=== PATIENT | female | born 1960 | race Caucasian/White ===

== ENCOUNTER 2017-01-12 08:47 | Day surgery (SDC) | payer SELFPAY ==
[2017-01-12] MEDS ORDERED: Lactated Ringer's 500 ML IV ONE (11:08)
[2017-01-12 11:26] VITALS: O2SAT 100
[2017-01-12 13:19] VITALS: BP 108/67; TEMP 97.5
[2017-01-12 13:43] VITALS: PULSE 65; RESP 12
== END 2017-01-12 13:44 | disposition home or self-care (01) ==
LOC: H.ENDO 08:47
PROVIDERS: ATTEND Internal Medicine Gastroenterology
DX: K57.92 Diverticulitis of intestine, part unspecified, without perforation or abscess without bleeding (principal); E03.9 Hypothyroidism, unspecified; Z09 Encounter for follow-up examination after completed treatment for conditions other than malignant neoplasm; K64.1 Second degree hemorrhoids
CPT/HCPCS: 45378; J2001; J7120

== ENCOUNTER 2017-11-03 14:38 | Emergency (ER) | payer SELFPAY ==
[2017-11-03 14:39] VITALS: BMI 31.5
--- NOTE | 2017-11-03 15:49 | ED PDOC ---
HPI: Female Pain Time Seen by Provider: 11/03/17 15:29 Chief Complaint (Nursing): Female Genitourinary Chief Complaint (Provider): Female Genitourinary History Per: Patient History/Exam Limitations: no limitations Onset/Duration Of Symptoms: Days (x 1) Current Symptoms Are (Timing): Still Present Quality Of Discomfort: "Pain" Associated Symptoms: denies: Vomiting, Diarrhea, Back Pain, Urinary Symptoms Additional Complaint(s): 57 year old female with a history of diverticulitis and a colostomy last year presents to the ED with diffuse abdominal pain and vaginal bleeding that began last night. She reports that she is urinating and defecating normally without pain and her vaginal blood does not contain clots. Patient denies back pain, vomiting, diarrhea, fever, bloody stool or urinary problems. PMD: [facility] Past Medical History Reviewed: Historical Data, Nursing Documentation, Vital Signs Vital Signs: Last Vital Signs Temp 98.2 F 11/03/17 14:41 Pulse 86 11/03/17 14:41 Resp 16 11/03/17 14:41 BP 138/96 H 11/03/17 14:41 Pulse Ox 98 11/03/17 14:41 - Medical History PMH: Diverticulitis, Hypothyroidism Denies: Chronic Kidney Disease - Surgical History Other surgeries: colostomy (last year) - Family History Family History: States: Unknown Family Hx - Social History Current smoker - smoking cessation education provided: No Ex-Smoker (has not smoked in the last 12 months): No Alcohol: Social Drugs: Denies - Immunization History Hx Tetanus Toxoid Vaccination: No Hx Influenza Vaccination: No Hx Pneumococcal Vaccination: No - Home Medications Home Medications: Ambulatory Orders Medication Instructions Recorded Levothyroxine [Synthroid] 0.1 mg PO DAILY 07/21/16 Amoxicillin/Potassium Clav 1 tab PO BIDPC #7 tab 02/19/17 [Augmentin 500 mg-125 mg] - Allergies Allergies/Adverse Reactions: Allergies Allergy/AdvReac Type Severity Reaction Status Date / Time No Known Allergies Allergy Verified 07/21/16 22:37 Review of Systems ROS Statement: Except As Marked, All Systems Reviewed And Found Negative Constitutional: Negative for: Fever Gastrointestinal: Positive for: Abdominal Pain (diffuse). Negative for: Vomiting, Diarrhea, Hematemesis Genitourinary Female: Positive for: Vaginal Bleeding (without clots) Musculoskeletal: Negative for: Back Pain Physical Exam - Reviewed Nursing Documentation Reviewed: Yes Vital Signs Reviewed: Yes - Physical Exam Appears: Positive for: Non-toxic, No Acute Distress Head Exam: Positive for: ATRAUMATIC, NORMAL INSPECTION, NORMOCEPHALIC Skin: Positive for: Normal Color, Warm, Dry Eye Exam: Positive for: EOMI, Normal appearance, PERRL Neck: Positive for: Normal, Painless ROM, Supple Cardiovascular/Chest: Positive for: Regular Rate, Rhythm. Negative for: Murmur Respiratory: Positive for: Normal Breath Sounds. Negative for: Respiratory Distress Gastrointestinal/Abdominal: Positive for: Tenderness (LLQ ) Back: Positive for: Normal Inspection Extremity: Positive for: Normal ROM. Negative for: Deformity Neurologic/Psych: Positive for: Alert, Oriented. Negative for: Motor/Sensory Deficits - Laboratory Results Result Diagrams: 11/03/17 15:50 11/03/17 15:50 - ECG O2 Sat by Pulse Oximetry: 98 (RA) Pulse Ox Interpretation: Normal Medical Decision Making Medical Decision Making: Time; 15:41 Impression: abdominal pain and vaginal bleeding Differential diagnoses include but are not limited to: uterine dysplasia, uterine cyst, diverticulitis Initial Plan: --BMP --Urine preg --urine dip --CBC with differentials --pelvis/ transvag US US FINDINGS: UTERUS: Measures 7.1 x 3.8 x 4.8 cm. Retroverted. No uterine mass. ENDOMETRIUM: Measures 4 mm in diameter. Unremarkable. CERVIX: No cervical abnormality identified. RIGHT OVARY: Measures 1.7 x 0.8 x 2.0 cm. No solid mass. Normal flow. LEFT OVARY: Measures 1.5 x 1.1 x 1.4 cm. No solid mass. Normal flow. FREE FLUID: No significant free fluid noted. OTHER FINDINGS: None. IMPRESSION: Unremarkable pelvic ultrasound. Time: 18:07 --Upon reevaluation, patient reports improvement of symptoms and is requesting to be discharged. Results were discussed with patient and is aware she must follow up with document control manager due to vaginal bleeding. She is stable and will be discharged home. Return to the Ed if symptoms persist or worsen. Scribe Attestation: Documented by Valeria Schumacher, acting as a scribe for Abner Márquez MD Provider Scribe Attestation: All medical record entries made by the Scribe were at my direction and personally dictated by me. I have reviewed the chart and agree that the record accurately reflects my personal performance of the history, physical exam, medical decision making, and the department course for this patient. I have also personally directed, reviewed, and agree with the discharge instructions and disposition. Disposition - Clinical Impression Clinical Impression: Vaginal bleeding - Patient ED Disposition Is Patient to be Admitted: No Doctor Will See Patient In The: Office Counseled Patient/Family Regarding: Studies Performed, Diagnosis, Need For Followup - Disposition Referrals: [facility] [Outside] Disposition: Routine/Home Disposition Time: 18:30 Condition: GOOD Additional Instructions: Follow up with your document control manager in 4- 5 days.
[2017-11-03 15:59] LABS: BASO # 0.1 K/uL (0.0-0.2); BASO % 0.6 % (0.0-2.0); EOS # 0.4 K/uL (0.0-0.7); EOS % 4.1 % (0.0-4.0); HEMOGLOBIN 12.6 g/dL (12.0-16.0); LYMPH # 2.7 K/uL (1.0-4.3); LYMPH % 26.6 % (20.0-40.0); MEAN CELL VOLUME 87.4 fl (81.0-99.0); MEAN CORPUSCULAR HEMOGLOBIN 30.1 pg (27.0-31.0); MEAN CORPUSCULAR HGB CONC 34.4 g/dL (33.0-37.0); MEAN PLATELET VOLUME 9.8 fl (7.2-11.7); MONO # 0.9 K/uL (0.0-0.8); MONO % 9.1 % (0.0-10.0); NEUT # 6.1 K/uL (1.8-7.0); NEUT % 59.6 % (50.0-75.0); NRBC % 0.1 % (0.0-0.0); RBC 4.2 Mil/uL (3.80-5.20); RED CELL DISTRIBUTION WIDTH 13.5 % (11.5-14.5); WHITE BLOOD COUNT 10.3 K/uL (4.8-10.8)
[2017-11-03 16:11] LABS: BLOOD UREA NITROGEN 17 mg/dl (7-17); CALCIUM 9.1 mg/dL (8.4-10.2); GFR AFRICAN-AMERICAN > 60; GFR NON-AFRICAN AMERICAN > 60
--- NOTE | 2017-11-03 17:52 | US ---
HISTORY: vaginal bleeding left pelvic pain COMPARISON: None available. TECHNIQUE: Transabdominal and transvaginal FINDINGS: UTERUS: Measures 7.1 x 3.8 x 4.8 cm. Retroverted. No uterine mass. ENDOMETRIUM: Measures 4 mm in diameter. Unremarkable. CERVIX: No cervical abnormality identified. RIGHT OVARY: Measures 1.7 x 0.8 x 2.0 cm. No solid mass. Normal flow. LEFT OVARY: Measures 1.5 x 1.1 x 1.4 cm. No solid mass. Normal flow. FREE FLUID: No significant free fluid noted. OTHER FINDINGS: None. IMPRESSION: Unremarkable pelvic ultrasound.
[2017-11-03 18:55] VITALS: BP 131/76; PULSE 71; RESP 78; TEMP 97.8
[2017-11-03 19:02] VITALS: O2SAT 98
== END 2017-11-03 18:52 | disposition home or self-care (01) ==
LOC: H.ER 14:38
DX: N93.9 Abnormal uterine and vaginal bleeding, unspecified (principal); E03.9 Hypothyroidism, unspecified; Z87.891 Personal history of nicotine dependence

== ENCOUNTER 2018-10-06 06:47 | Emergency (ER) | payer SELFPAY ==
[2018-10-06 06:48] VITALS: BMI 31.5
[2018-10-06 07:05] VITALS: RESP 18
--- NOTE | 2018-10-06 07:21 | ED PDOC ---
HPI: Abdomen Time Seen by Provider: 10/06/18 07:11 Chief Complaint (Nursing): Abdominal Pain Chief Complaint (Provider): Abdominal Pain History Per: Patient, Family (daughter) History/Exam Limitations: no limitations Onset/Duration Of Symptoms: Days (x3), Worse Since (last night) Current Symptoms Are (Timing): Still Present Additional Complaint(s): 58 year old female with medical history of diverticulitis, presents to the emergency department with daughter at bedside for an evaluation of back pain and dysuira associated with burning sensation, frequency, and urgency for the past 3 days. She additionally reports some nausea that had resolved upon arrival. Patient states symptoms became worse last night but has not taken any medication for relief, thus far. She denies bloody urine, chest pain, vomiting, shortness of breath, fever, chills, or cough. PCP: [facility] Past Medical History Reviewed: Historical Data, Nursing Documentation, Vital Signs Vital Signs: Last Vital Signs Temp 97.8 F 10/06/18 07:03 Pulse 76 10/06/18 07:03 Resp 18 10/06/18 07:03 BP 131/82 10/06/18 07:03 Pulse Ox 97 10/06/18 07:03 Primary Care Provider: Angelina Moody ([facility]) - Medical History PMH: Diverticulitis, Hypothyroidism Denies: Chronic Kidney Disease - Surgical History Other surgeries: colostomy - Family History Family History: States: Unknown Family Hx - Immunization History Hx Tetanus Toxoid Vaccination: No Hx Influenza Vaccination: No Hx Pneumococcal Vaccination: No - Home Medications Home Medications: Ambulatory Orders Medication Instructions Recorded Levothyroxine [Synthroid] 0.1 mg PO DAILY 07/21/16 Amoxicillin/Potassium Clav 1 tab PO BIDPC #7 tab 02/19/17 [Augmentin 500 mg-125 mg] Ibuprofen [Motrin] 600 mg PO TID 7 Days tab 10/06/18 Nitrofurantoin Macrocrystals 100 mg PO BID #10 cap 10/06/18 [Macrobid] - Allergies Allergies/Adverse Reactions: Allergies Allergy/AdvReac Type Severity Reaction Status Date / Time No Known Allergies Allergy Verified 10/06/18 07:06 Review of Systems ROS Statement: Except As Marked, All Systems Reviewed And Found Negative Constitutional: Negative for: Fever, Chills Cardiovascular: Negative for: Chest Pain Respiratory: Negative for: Cough, Shortness of Breath Gastrointestinal: Positive for: Nausea (resolved), Abdominal Pain (lower). Negative for: Vomiting Genitourinary Female: Positive for: Dysuria (burning sensation), Frequency (and urgency). Negative for: Hematuria Musculoskeletal: Positive for: Back Pain (lower) Physical Exam - Reviewed Nursing Documentation Reviewed: Yes Vital Signs Reviewed: Yes - Physical Exam Appears: Positive for: No Acute Distress, Uncomfortable Head Exam: Positive for: ATRAUMATIC, NORMAL INSPECTION, NORMOCEPHALIC Skin: Positive for: Normal Color Eye Exam: Positive for: Normal appearance ENT: Positive for: Normal ENT Inspection Neck: Positive for: Normal Cardiovascular/Chest: Positive for: Regular Rate, Rhythm, Chest Non Tender. Negative for: Murmur Respiratory: Positive for: Normal Breath Sounds. Negative for: Respiratory Distress Gastrointestinal/Abdominal: Positive for: Soft, Tenderness (suprapubic; LLQ) Back: Positive for: Normal Inspection. Negative for: L CVA Tenderness, R CVA Tenderness, Other (flank tenderness) Extremity: Positive for: Normal ROM (upper/lower) Neurological/Psych: Positive for: Awake, Alert, Normal Tone, Symmetric/Intact Strength, Oriented. Negative for: Motor/Sensory Deficits - Laboratory Results Result Diagrams: 10/06/18 07:28 10/06/18 07:40 Interpretation Of Abn Labs: 10.9 wbc, urine wbc - ECG O2 Sat by Pulse Oximetry: 97 (RA) Pulse Ox Interpretation: Normal - CT Scan/US ct Other Rad Studies (CT/US): Read By Radiologist Other Rad Interpretation: cystitis - Progress ED Course And Treament: 1042: Stable. AAOx3. Pain free. Tolerated PO. Will rx for uti. Medical Decision Making Medical Decision Making: Time: 715 Initial Plan: * Labs including UA * CT ABD/pelvis * IV fluids * Toradol IVP * Zofran IV * Blood culture * Urine culture Time: 939 --CT ABD/pelvis FINDINGS: LOWER THORAX: Unremarkable. LIVER: Mild hepatomegaly. No gross lesion or ductal dilatation. GALLBLADDER AND BILE DUCTS: Unremarkable. PANCREAS: Unremarkable. No gross lesion or ductal dilatation. SPLEEN: Unremarkable. ADRENALS: Unremarkable. No mass. KIDNEYS AND URETERS: Unremarkable. No hydronephrosis. No solid mass. VASCULATURE: Unremarkable. No aortic aneurysm. No aortic atherosclerotic calcification or mural plaque present. BOWEL: Mild constipation. No obstruction. No gross mural thickening. The patient is status post the anastomosis of the large bowel at the rectum noted. The small bowel loops are not dilated. APPENDIX: There is no evidence of appendicitis. PERITONEUM: Unremarkable. No free fluid. No free air. LYMPH NODES: Unremarkable. No enlarged lymph nodes. BLADDER: Mild to moderate circumferential urinary bladder wall thickening is noted. REPRODUCTIVE: Unremarkable. BONES: No acute fracture. OTHER FINDINGS: There is a fat containing left lateral abdominal wall hernia measures 8.5 centimeter in the transverse diameter and 3.8 centimeter in the AP diameter. There is also umbilical hernia contains short segment of small bowel loops without evidence of bowel obstruction or incarceration. There are adjacent fat containing ventral hernia at the midline superior to the umbilicus also noted. IMPRESSION: Moderate circumferential urinary bladder wall thickening associated with mild dilatation of the collecting system of both kidneys. Please correlate clinically for cystitis. Postsurgical changes suggestive of prior large bowel anastomosis at the rectum. Multiple fat containing anterior and left lateral abdominal wall hernias noted. Umbilical hernia contains short segment of small bowel loop without evidence of bowel incarceration or obstruction. Scribe Attestation: Documented by Odalys Burrows, acting as a scribe for James Butler MD. Provider Scribe Attestation: All medical record entries made by the Scribe were at my direction and personally dictated by me. I have reviewed the chart and agree that the record accurately reflects my personal performance of the history, physical exam, medical decision making, and the department course for this patient. I have also personally directed, reviewed, and agree with the discharge instructions and disposition. Disposition - Clinical Impression Clinical Impression: UTI (urinary tract infection), Abdominal pain - Patient ED Disposition Is Patient to be Admitted: No Counseled Patient/Family Regarding: Studies Performed, Diagnosis, Need For Followup, Rx Given - Disposition Referrals: Angelina Moody MD [Primary Care Provider] - 10/10/18 Disposition: Routine/Home Disposition Time: 10:44 Condition: STABLE Additional Instructions: Return if not better in 3 days. Prescriptions: Ibuprofen [Motrin] 600 mg PO TID 7 Days tab Nitrofurantoin Macrocrystals [Macrobid] 100 mg PO BID #10 cap Instructions: Urinary Tract Infections in Adults, Stomach Ache and Stomach Upset Forms: [email or web address] (Persian), [facility] ED School/Work Excuse Print Language: GEORGIAN
[2018-10-06] MEDS ORDERED: Sodium Chloride 0.9% 1,000 ML IV STA (07:27)
[2018-10-06 07:49] LABS: VENOUS BLOOD GAS BASE EXCESS 2.7 mmol/L (0.0-2.0); VENOUS BLOOD GAS PCO2 50 mmHg (40-60); VENOUS BLOOD GAS PO2 25 mm/Hg (30-55); VENOUS BLOOD PH 7.37 (7.32-7.43)
[2018-10-06 07:54] LABS: BASO # 0.1 K/uL (0.0-0.2); BASO % 0.6 % (0.0-2.0); EOS # 0.1 K/uL (0.0-0.7); EOS % 1.3 % (0.0-4.0); HEMOGLOBIN 12.5 g/dL (12.0-16.0); LYMPH # 2.5 K/uL (1.0-4.3); LYMPH % 22.6 % (20.0-40.0); MEAN CELL VOLUME 87.6 fl (81.0-99.0); MEAN CORPUSCULAR HEMOGLOBIN 28.7 pg (27.0-31.0); MEAN CORPUSCULAR HGB CONC 32.8 g/dL (33.0-37.0); MEAN PLATELET VOLUME 9.5 fl (7.2-11.7); MONO % 8.7 % (0.0-10.0); NEUT # 7.3 K/uL (1.8-7.0); NEUT % 66.8 % (50.0-75.0); NRBC % 0.1 % (0.0-0.0); RBC 4.36 Mil/uL (3.80-5.20); RED CELL DISTRIBUTION WIDTH 13.7 % (11.5-14.5); WHITE BLOOD COUNT 10.9 K/uL (4.8-10.8)
[2018-10-06 08:03] LABS: ALB/GLOB RATIO 1.4 (1.0-2.1); ALBUMIN 4.2 g/dL (3.5-5.0); ALT/SGPT 29 U/L (9-52); AST/SGOT 24 U/L (14-36); BLOOD UREA NITROGEN 12 mg/dl (7-17); CALCIUM 8.7 mg/dL (8.4-10.2); GFR NON-AFRICAN AMERICAN > 60
[2018-10-06 08:04] LABS: URINE COLOR COLORLESS (YELLOW)
[2018-10-06 08:05] LABS: URINE BILIRUBIN NEGATIVE (NEGATIVE); URINE BLOOD SMALL (NEGATIVE); URINE CLARITY CLEAR (Clear); URINE GLUCOSE (UA) NEGATIVE (NEGATIVE); URINE LEUKOCYTE ESTERASE SMALL Leu/uL (Negative); URINE PROTEIN NEGATIVE (NEGATIVE); URINE UROBILINOGEN 0.2 mg/dL (0.2-1.0)
[2018-10-06 08:06] LABS: SQUAMOUS EPITHIAL 1 /hpf (0-5); URINE BACTERIA OCC (<OCC)
[2018-10-06] MEDS ORDERED: Iohexol 300 100 ML IJ ONE (08:22)
[2018-10-06] MEDS ORDERED: Sodium Chloride 0.9% 50 ML IV ONE (08:22)
--- NOTE | 2018-10-06 09:44 | CT ---
Date of service: 10/06/2018 PROCEDURE: CT Abdomen and Pelvis with contrast HISTORY: pain COMPARISON: Comparison is made with the previous ultrasound of the pelvis dated 02/10/2018. TECHNIQUE: Contrast dose: 95 cc of Omnipaque 300 intravenously. Axial and reformatted coronal and sagittal CT images of the abdomen and pelvis were obtained after IV contrast administration. Radiation dose: Total exam DLP = 748.61 mGy-cm. This CT exam was performed using one or more of the following dose reduction techniques: Automated exposure control, adjustment of the mA and/or kV according to patient size, and/or use of iterative reconstruction technique. FINDINGS: LOWER THORAX: Unremarkable. LIVER: Mild hepatomegaly. No gross lesion or ductal dilatation. GALLBLADDER AND BILE DUCTS: Unremarkable. PANCREAS: Unremarkable. No gross lesion or ductal dilatation. SPLEEN: Unremarkable. ADRENALS: Unremarkable. No mass. KIDNEYS AND URETERS: Unremarkable. No hydronephrosis. No solid mass. VASCULATURE: Unremarkable. No aortic aneurysm. No aortic atherosclerotic calcification or mural plaque present. BOWEL: Mild constipation. No obstruction. No gross mural thickening. The patient is status post the anastomosis of the large bowel at the rectum noted. The small bowel loops are not dilated. APPENDIX: There is no evidence of appendicitis. PERITONEUM: Unremarkable. No free fluid. No free air. LYMPH NODES: Unremarkable. No enlarged lymph nodes. BLADDER: Mild to moderate circumferential urinary bladder wall thickening is noted. REPRODUCTIVE: Unremarkable. BONES: No acute fracture. OTHER FINDINGS: There is a fat containing left lateral abdominal wall hernia measures 8.5 centimeter in the transverse diameter and 3.8 centimeter in the AP diameter. There is also umbilical hernia contains short segment of small bowel loops without evidence of bowel obstruction or incarceration. There are adjacent fat containing ventral hernia at the midline superior to the umbilicus also noted. IMPRESSION: Moderate circumferential urinary bladder wall thickening associated with mild dilatation of the collecting system of both kidneys. Please correlate clinically for cystitis. Postsurgical changes suggestive of prior large bowel anastomosis at the rectum. Multiple fat containing anterior and left lateral abdominal wall hernias noted. Umbilical hernia contains short segment of small bowel loop without evidence of bowel incarceration or obstruction.
[2018-10-06 12:06] VITALS: BP 135/90; PULSE 65; TEMP 98; O2SAT 99
== END 2018-10-06 12:08 | disposition home or self-care (01) ==
LOC: H.ER 06:47
DX: R10.9 Unspecified abdominal pain (principal); N39.0 Urinary tract infection, site not specified; E03.9 Hypothyroidism, unspecified; N30.90 Cystitis, unspecified without hematuria
CPT/HCPCS: 74177; 80053; 81003; 82803; 84443; 85025; 87040; 87086; 96361; 96374; 99284; J1885; J7030; Q9967